=== PATIENT | male | born 1975 | race Caucasian/White ===

== ENCOUNTER 2018-09-18 23:21 | Observation (INO) | payer BC ==
[~2018-09-18] VITALS: Ht 182.9 cm; Wt 90.8 kg
[~2018-09-18 23:21] MED LIST: AMOX500 PO; BACL; BACLOFEN; BUPR150T2; CODGUAEL PO; DIVA500ER; HYDACE5 PO; MELO7.5; META800; OXYACE5T PO; TRAM50; TRAZ50; [UNRECOGNIZED DRUG - REMARK]
[2018-09-18 23:53] LABS: BASOPHILS ABSOLUTE AUTO 0.01 K/mm3 (0.00-0.23); BASOPHILS PERCENT AUTO 0 % (0-2); EOSINOPHILS ABSOLUTE AUTO 0.06 K/mm3 (0.00-0.68); EOSINOPHILS PERCENT AUTO 2 % (0-6); Hematocrit 39.6 % (37.0-53.0); Hemoglobin 13.8 g/dL (13.5-17.5); IMMATURE GRAN ABSOLUTE AUTO 0.01 K/mm3 (0.00-0.10); IMMATURE GRAN PERCENT AUTO 0 % (0-1); LYMPHOCYTES PERCENT AUTO 41 % (21-46); MONOCYTES PERCENT AUTO 9 % (4-13); Mean Corpuscular HGB 30.9 pg (26.0-34.0); Mean Corpuscular HGB Conc 34.8 g/dL (31.5-36.5); Mean Corpuscular Volume 89 fL (80-100); Mean Platelet Volume 10.3 fL (9.1-12.4); NEUTROPHILS ABSOLUTE AUTO 1.61 K/mm3 (1.96-9.15); NEUTROPHILS PERCENT AUTO 48 % (41-73); Platelet Count 149 K/mm3 (150-400); RDW Coefficient Variation 12.9 % (11.7-14.2); RDW Standard Deviation 42.4 fL (35.1-46.3); Red Blood Cell Count 4.46 M/mm3 (4.30-5.90); White Blood Cell Count 3.39 K/mm3 (4.00-11.30)
[2018-09-19 00:07] LABS: Alanine Aminotransfer (ALT/SGP 122 U/L (12-78); Albumin, Blood 3.8 g/dL (3.4-5.0); Albumin/Globulin Ratio 1.5 (0.8-1.8); Alk Phos 66 U/L (50-136); Anion Gap 9 mmol/L (6-16); Aspartate Aminotrans (AST/SGOT 153 U/L (12-37); Bilirubin, Total 0.3 mg/dL (0.1-1.0); Blood Urea Nitrogen 36 mg/dL (8-24); Bun/Creatinine Ratio 44.4 (12.0-20.0); CO2, Blood 23 mmol/L (21-32); Calcium, Blood 8.7 mg/dL (8.5-10.1); Chloride, Blood 111 mmol/L (98-108); Creatinine, Blood 0.81 mg/dL (0.60-1.20); Globulin, Blood 2.6 g/dL (2.2-4.0); Glomerular Filtration Rate >60 (60-); Glucose, Blood 104 mg/dL (70-99); Potassium, Blood 3.4 mmol/L (3.5-5.5); Sodium, Blood 143 mmol/L (136-145); Total Protein, Blood 6.4 g/dL (6.4-8.2); Troponin I <0.015 ng/mL (0.000-0.040)
--- NOTE | 2018-09-19 03:43 | NUR ---
ADMIT NOTE RECEIVED REPORT FROM BAILEY WYLIE AND PT ARRIVES TO ROOM VIA GURNEY. PT IS ABLE TO TX SELF TO BED INDEPENDENTLY. DENIES PAIN, DISCOMFORT, SHORTNESS OF BREATH AT THIS TIME. STATES "I WAS DIZZY AND SHORT OF BREATH EARLIER WHEN THE CHEST PAIN STARTED". WILL INITIATE ORDERS AND ESTABLISH PLAN OF CARE. PT'S (ALEJANDRA) AT THE BEDSIDE AND PLANNING TO STAY THE NIGHT. VSS, SEE ASSESSMENT FOR DETAILS. CALL LIGHT AND BELONGINGS IN REACH.
[2018-09-19 05:04] LABS: Cholesterol 169 mg/dL (50-200); HDL Cholesterol 28 mg/dL (>39); Low Density Lipoprotein Chol 111 mg/dL (0-110); Triglycerides 150 mg/dL (30-160); Very Low Density Lipoprot Chol 30 mg/dL (6-32)
--- NOTE | 2018-09-19 07:23 | NUR ---
PT APPEARED RELAXED AND RESTING WELL AFTER ADMISSION. DENIES CHEST PAIN OR OTHER COMPLAINTS THROUGH SHIFT. NO ASSESSMENT CHANGES. TROPONIN CONTINUES TO BE NEGATIVE. TELE SHOWS SB WITH 1ST DEGREE AV BLOCK IN THE 50'S, NO ST CHANGES. PT IS MED/TELE OBS STATUS AND EXPECTS TO GO HOME TODAY. INTERESTED IN DISCUSSING ELEVATED LIVER ENZYMES WITH MD SINCE PT HAS NO SIGNIFICANT HISTORY OF LIVER PROBLEMS. REPORT GIVEN AT THE BEDSIDE TO DWAINE WYLIE.
--- NOTE | 2018-09-19 09:29 | NUR ---
BEGINNING OF SHIFT Assumed care of pt at 0700. Bedside report recieved from Sagrario WYLIE. Pt on room air. SR per telemetry. Pt states he has not had any chest pain this shift. Pt independent in room. Bed in lowest position. Call light in reach. Pt denies need at this time.
--- NOTE | 2018-09-19 17:33 | NUR ---
SHIFT SUMMARY No acute changes to shift assessment. Pt has not had any chest pain this shift. Will continue to closely monitor until care handoff and bedside report with oncoming RN.
--- NOTE | 2018-09-19 21:57 | NUR ---
ASSUMED CARE OF PATIENT AT APPROXIMATELY 1905 FROM DWAINE Mckee RN. PATIENT ALERT AND ORIENTED X4; INDEPENDENT IN ROOM. PATIENT DENIES PAIN, NUMBNESS, TILNGING, DIZZINESS AND NAUSEA. SB W/ 1ST DEGREE BLOCK ON TELE; OXYGEN SATURATION ABOVE 90% ON ROOM AIR; MEDICAL NO TELE STATUS; PATIENT HAD ONE DAY STRESS TEST TODAY. PIV S/L. SLEEPING BEDSIDE IN RECLINER. PATIENT CURRENTLY RESTING IN BED; CALL LIGHT IN REACH; BED IN LOWEST POSISTION; WILL CONTINUE TO MONITOR AND ASSESS UNTIL END OF SHIFT.
[2018-09-20 03:58] LABS: BASOPHILS ABSOLUTE AUTO 0.01 K/mm3 (0.00-0.23); BASOPHILS PERCENT AUTO 0 % (0-2); EOSINOPHILS ABSOLUTE AUTO 0.11 K/mm3 (0.00-0.68); EOSINOPHILS PERCENT AUTO 3 % (0-6); Hemoglobin 13.8 g/dL (13.5-17.5); IMMATURE GRAN PERCENT AUTO 0 % (0-1); LYMPHOCYTES ABSOLUTE AUTO 1.27 K/mm3 (0.84-5.20); LYMPHOCYTES PERCENT AUTO 36 % (21-46); MONOCYTES ABSOLUTE AUTO 0.35 K/mm3 (0.16-1.47); MONOCYTES PERCENT AUTO 10 % (4-13); Mean Corpuscular HGB 29.9 pg (26.0-34.0); Mean Corpuscular HGB Conc 33.7 g/dL (31.5-36.5); Mean Corpuscular Volume 89 fL (80-100); Mean Platelet Volume 10.7 fL (9.1-12.4); NEUTROPHILS ABSOLUTE AUTO 1.79 K/mm3 (1.96-9.15); NEUTROPHILS PERCENT AUTO 51 % (41-73); Platelet Count 123 K/mm3 (150-400); RDW Standard Deviation 42.3 fL (35.1-46.3); Red Blood Cell Count 4.62 M/mm3 (4.30-5.90); White Blood Cell Count 3.53 K/mm3 (4.00-11.30)
[2018-09-20 04:22] LABS: Alanine Aminotransfer (ALT/SGP 81 U/L (12-78); Albumin, Blood 3.6 g/dL (3.4-5.0); Albumin/Globulin Ratio 1.4 (0.8-1.8); Alk Phos 58 U/L (50-136); Anion Gap 8 mmol/L (6-16); Aspartate Aminotrans (AST/SGOT 29 U/L (12-37); Bilirubin, Total 0.5 mg/dL (0.1-1.0); Blood Urea Nitrogen 22 mg/dL (8-24); Bun/Creatinine Ratio 28.9 (12.0-20.0); CO2, Blood 25 mmol/L (21-32); Calcium, Blood 8.5 mg/dL (8.5-10.1); Chloride, Blood 110 mmol/L (98-108); Creatinine, Blood 0.76 mg/dL (0.60-1.20); Globulin, Blood 2.6 g/dL (2.2-4.0); Glomerular Filtration Rate >60 (60-); Glucose, Blood 82 mg/dL (70-99); Magnesium, Blood 2.2 mg/dL (1.6-2.4); Potassium, Blood 3.7 mmol/L (3.5-5.5); Sodium, Blood 143 mmol/L (136-145); Total Protein, Blood 6.2 g/dL (6.4-8.2)
[2018-09-20 04:28] LABS: Thyroid Stimulating Hormone 0.737 uIU/mL (0.360-4.800)
[2018-09-20] MEDS ORDERED: ASPI81CH PO (12:25)
--- NOTE | 2018-09-20 16:15 | NUR ---
Discharge: Pt discharged at approx 1230 after seen and cleared to go home by Dr. Reyes. No acute changes since initial shift assessment. In no apparent sign of distress. Denies any acute changes or events since this AM. Independent in the room. Discharged home with and all belongings. 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 Denies any further questions at time of discharge.
== END 2018-09-20 12:50 | disposition home or self-care (01) ==
LOC: ER 23:21 → PCU 23:22 → ER 09-19 02:56 → PCU 09-19 02:56
PROVIDERS: Emergency Medicine; Internal Medicine; ADMIT Hospitalist
DX: R07.89 Other chest pain (principal); E78.5 Hyperlipidemia, unspecified; R94.5 Abnormal results of liver function studies; K80.20 Calculus of gallbladder without cholecystitis without obstruction; I10 Essential (primary) hypertension; G47.30 Sleep apnea, unspecified; E66.01 Morbid (severe) obesity due to excess calories; Z87.891 Personal history of nicotine dependence; Z98.84 Bariatric surgery status
CPT/HCPCS: 36415; 71046; 76705; 78452; 80053; 80061; 83690; 83735; 84443; 84484; 85025; 93005; 93010; 93017; 99285-25; A9500; J1650; J2785

== ENCOUNTER 2022-08-15 21:08 | Emergency (ER) | payer OTHER ==
[~2022-08-15] VITALS: Ht 182.9 cm; Wt 83.9 kg
[~2022-08-15 21:08] MED LIST changes: +ASPI81CH PO
[2022-08-15 21:36] LABS: BASOPHILS ABSOLUTE AUTO 0.01 K/mm3 (0.00-0.23); BASOPHILS PERCENT AUTO 0 % (0-2); EOSINOPHILS ABSOLUTE AUTO 0.08 K/mm3 (0.00-0.68); EOSINOPHILS PERCENT AUTO 3 % (0-6); Hematocrit 42.6 % (37.0-53.0); Hemoglobin 15.3 g/dL (13.5-17.5); IMMATURE GRAN PERCENT AUTO 0 % (0-1); LYMPHOCYTES ABSOLUTE AUTO 1.11 K/mm3 (0.84-5.20); LYMPHOCYTES PERCENT AUTO 36 % (21-46); MONOCYTES ABSOLUTE AUTO 0.28 K/mm3 (0.16-1.47); MONOCYTES PERCENT AUTO 9 % (4-13); Mean Corpuscular HGB 32.2 pg (26.0-34.0); Mean Corpuscular HGB Conc 35.9 g/dL (31.5-36.5); Mean Corpuscular Volume 90 fL (80-100); Mean Platelet Volume 9.9 fL (9.1-12.4); NEUTROPHILS ABSOLUTE AUTO 1.59 K/mm3 (1.96-9.15); NEUTROPHILS PERCENT AUTO 52 % (41-73); Platelet Count 137 K/mm3 (150-400); RDW Coefficient Variation 11.9 % (11.7-14.2); RDW Standard Deviation 38.8 fL (35.1-46.3); Red Blood Cell Count 4.75 M/mm3 (4.30-5.90); White Blood Cell Count 3.07 K/mm3 (4.00-11.30)
[2022-08-15 21:57] LABS: Albumin, Blood 3.9 g/dL (3.4-5.0); Albumin/Globulin Ratio 1.3 (0.8-1.8); Bilirubin, Total 0.5 mg/dL (0.1-1.0); Bun/Creatinine Ratio 23.5 (12.0-20.0); Calcium, Blood 8.9 mg/dL (8.5-10.1); Creatinine, Blood 0.68 mg/dL (0.60-1.20); Potassium, Blood 3.2 mmol/L (3.5-5.5); Total Protein, Blood 6.9 g/dL (6.4-8.2)
[2022-08-17 08:11] LABS: HBSAG SCREEN Negative (Negative); HCV AB Non Reactive (Non Reactive); HEP A AB, IGM Negative (Negative); HEP B CORE AB, IGM Negative (Negative)
== END 2022-08-16 01:20 | disposition home or self-care (01) ==
LOC: ER 21:08
PROVIDERS: Emergency Medicine
DX: R10.12 Left upper quadrant pain (principal); Z87.891 Personal history of nicotine dependence; Z79.82 Long term (current) use of aspirin; F10.129 Alcohol abuse with intoxication, unspecified; R74.01 Elevation of levels of liver transaminase levels
CPT/HCPCS: 71046; 80053; 80074; 83690; 84484; 85025; 93005; 93010; 99285-25; G0480